=== PATIENT | male | born 1960 | race Caucasian/White ===

== ENCOUNTER 2018-06-02 07:10 | Observation (INO) | payer BC, OTHER ==
[2018-06-02 07:29] LABS: Absolute Lymphocytes (CBC) 1.7 K/uL (0.7-4.9); Absolute Monocytes 0.5 K/uL (0.1-1.3); Basophils % 0.8 % (0-1.3); Eosinophils % 3.2 % (0-4.4); Hematocrit 43.6 % (39.6-49.0); Lymphocytes % 31.6 % (15.3-44.8); MPV 7.5 fL (7.6-11.3); Monocytes % 9.6 % (3.3-12.3); RBC Red Blood Cell Count 4.79 M/uL (4.33-5.43)
[2018-06-02 08:00] LABS: ALT/SGPT 31 U/L (12-78); AST/SGOT 27 U/L (15-37); Albumin 3.8 g/dL (3.4-5.0); Alkaline Phosphatase 66 U/L (45-117); BUN Blood Urea Nitrogen 10 mg/dL (7-18); Bicarbonate 24 mmol/L (21-32); Bilirubin Direct 0.1 mg/dL (0-0.2); Bilirubin Total 0.5 mg/dL (0.2-1.0); Glucose Level 126 mg/dL (74-106); NT PRO-BNP 52 pg/mL (<125); Potassium 3.5 mmol/L (3.5-5.1); Protein, Total 8.2 g/dL (6.4-8.2); Sodium Level 139 mmol/L (136-145); Troponin (Emerg Dept Use Only) < 0.02 ng/mL (0.0-0.045)
--- NOTE | 2018-06-02 08:53 | RAD REPORT ---
EXAM DESCRIPTION: CT - Chest For Pe Angio - 06/02/2018 8:31 am CLINICAL HISTORY: Chest pain COMPARISON: None. TECHNIQUE: Dynamically enhanced axial 3 mm thick images of the chest were obtained during administra tion of <100> mL Isovue 370 IV contrast. Coronal and oblique reconstruction images were generated and reviewed. Exam utilizes a protocol for optimal evaluation of pulmonary arterial tree. Maximum intensity projections 3D imaging was utilized All CT scans are performed using dose optimization technique as appropriate and may include automated exposure control or mA/KV adjustment according to patient size. FINDINGS: Evaluation of the peripheral pulmonary arteries suboptimal secondary to respiratory motion artifact. No gross pulmonary embolus seen A thoracic aortic aneurysm is not noted. A pleural effusion is not seen. A pericardial effusion is not seen. A lung consolidation is not present. Fatty liver. Right renal cyst IMPRESSION: No gross pulmonary embolus seen
--- NOTE | 2018-06-02 09:30 | RAD REPORT ---
EXAM DESCRIPTION: Phong Single View06/02/2018 7:34 am CLINICAL HISTORY: Chest pain COMPARISON: 2012 FINDINGS: The lungs appear clear of acute infiltrate. The heart is normal size IMPRESSION: No acute abnormalities displayed
--- NOTE | 2018-06-02 09:30 | RAD REPORT ---
EXAM DESCRIPTION: USExtrem Venous W Compress Bil06/02/2018 8:11 am CLINICAL HISTORY: Bilateral leg swelling COMPARISON: none FINDINGS: The common femoral, superficial femoral, popliteal and posterior tibial veins bilaterally are compressible and demonstrate augmentation. Doppler demonstrates good flow. IMPRESSION: No evidence of deep venous thrombosis involving either lower extremity.
--- NOTE | 2018-06-02 10:11 | EDPHYS ---
Physician Documentation [facility] Name: Randy Worrell Age: 57 yrs Sex: Male : 1960 Arrival Date: 06/02/2018 Time: 07:12 Bed 3 Private MD: ED Physician Richy Mcqueen HPI: 06/02 07:15 This 57 yrs old Male presents to ER via Unassigned with complaints of Chest rn Pain > 30 y/o. 07:15 The patient or guardian reports chest pain that is located primarily in the substernal rn area. Onset: just prior to arrival. The pain does not radiate. Associated signs and symptoms: Pertinent positives: headache, lightheadedness, palpitations, shortness of breath, Pertinent negatives: abdominal pain, cough, syncope, vomiting. The chest pain is described as crushing. Duration: The patient or guardian reports a single episode, that is now resolved. Modifying factors: The symptoms are alleviated by ASA, NTG, the symptoms are aggravated by nothing. Severity of pain: At its worst the pain was moderate in the emergency department the pain has resolved. The patient has experienced similar episodes in the past. The patient has not recently seen a physician. Reports chest pain, intermittent episodes for "some time", was going to make appt soon for eval with PCP, but at work began with chest crushing pain, non-radiating, assoc with palpitations and sob, + lightheaded, no nausea/vomiting/diaphoresis. No abd pain. Pain resolved after nitro and aspirin.. Historical: - Allergies: 07:17 No Known Allergies; ss - PMHx: 07:17 Hypertension; "prediabetic"; ss - Immunization history:: Adult Immunizations up to date. - Social history:: Smoking status: Patient uses tobacco products, Cigars on occasion. - Ebola Screening: : Patient denies exposure to infectious person Patient denies travel to an Ebola-affected area in the 21 days before illness onset. - Family history:: not pertinent. - Hospitalizations: : No recent hospitalization is reported. ROS: 07:15 Constitutional: Negative for fever, chills, and weight loss, Eyes: Negative for injury, rn pain, redness, and discharge, Cardiovascular: + chest pain/palpitations/edema Respiratory: Negative for cough, wheezing, and pleuritic chest pain, Abdomen/GI: Negative for abdominal pain, nausea, vomiting, diarrhea, and constipation, MS/Extremity: Negative for injury and deformity, Skin: Negative for injury, rash, and discoloration, Neuro: Negative for weakness, numbness, tingling, and seizure. Exam: 07:20 Constitutional: This is a well developed, well nourished patient who is awake, alert, rn appears anxious Head/Face: Normocephalic, atraumatic. Eyes: Pupils equal round and reactive to light, extra-ocular motions intact. Lids and lashes normal. Conjunctiva and sclera are non-icteric and not injected. Cornea within normal limits. Periorbital areas with no swelling, redness, or edema. Cardiovascular: Regular rhythm, no murmur Respiratory: + mild tachypnea, no retractions, speaking full sentences Abdomen/GI: soft, non-tender MS/ Extremity: Pulses equal, no cyanosis. Neurovascular intact. Full, normal range of motion. + edema bilateral lower ext Neuro: Awake and alert, GCS 15, oriented to person, place, time, and situation. Cranial nerves II-XII grossly intact. Motor strength 5/5 in all extremities. Sensory grossly intact. Vital Signs: 07:17 BP 157 / 112; Pulse 96; Resp 24; Pulse Ox 100% on R/A; Height 5 ft. 9 in. (175.26 cm); ss Pain 0/10; 07:36 BP 149 / 106; Pulse 87; Resp 18 S; Pulse Ox 100% on R/A; iw 07:45 Temp 97.6; sg 09:06 BP 163 / 96; Pulse 85; Resp 16; Pulse Ox 98% on R/A; iw 09:54 BP 179 / 93; Pulse 86 MON; Resp 17; Pulse Ox 100% on R/A; sg 11:21 BP 154 / 93; Pulse 73; Resp 18; Pulse Ox 100% on R/A; ag MDM: 07:12 Patient medically screened. rn 10:07 Differential diagnosis: acute myocardial infarction, acute pericarditis, anxiety, rn coronary artery disease chest wall pain, esophagitis, gastritis, gastroesophageal reflux disease (GERD), pneumonia, pneumothorax, pulmonary embolus. Data reviewed: vital signs, nurses notes, lab test result(s), EKG, radiologic studies, and as a result, I will admit patient. Counseling: I had a detailed discussion with the patient and/or guardian regarding: the historical points, exam findings, and any diagnostic results supporting the discharge/admit diagnosis, the presence of at least one elevated blood pressure reading (>120/80) during this emergency department visit, the need for further work-up and treatment in the hospital. Response to treatment: the patient's symptoms have resolved after treatment, the patient's condition has returned to base line, the patient is now symptom free, and as a result, I will admit patient. Admission orders: after a detailed discussion of the patient's condition and case, the admit orders are written by me. ED course: Given episodes of chest pain without clear etiology, poorly controlled BP, will admit for further evaluation, admitted to Dr. Walker. . 06/02 07:13 Order name: Basic Metabolic Panel; Complete Time: 08:08 rn 06/02 07:13 Order name: CBC with Diff; Complete Time: 07:46 rn 06/02 07:13 Order name: LFT's; Complete Time: 08:08 rn 06/02 07:13 Order name: NT PRO-BNP; Complete Time: 08:08 rn 06/02 07:13 Order name: Troponin (emerg Dept Use Only); Complete Time: 08:08 rn 06/02 13:31 Order name: Troponin I EDWI 06/02 07:13 Order name: XRAY Chest (1 view); Complete Time: 09:32 rn 06/02 07:13 Order name: EKG; Complete Time: 07:15 rn 06/02 07:13 Order name: Cardiac monitoring; Complete Time: 07:49 rn 06/02 07:13 Order name: EKG - Nurse/Tech; Complete Time: 07:49 rn 06/02 07:20 Order name: Extrem Venous W Compression Tarik US; Complete Time: 09:32 rn 06/02 08:09 Order name: CT Chest For PE Angio; Complete Time: 09:32 rn 06/02 10:11 Order name: CONS Physician Consult EDWI 06/02 10:14 Order name: Echo with Doppler EDMS 06/02 07:13 Order name: IV Saline Lock; Complete Time: 07:50 rn 06/02 07:13 Order name: Labs collected and sent; Complete Time: 07:50 rn 06/02 07:13 Order name: O2 Per Protocol; Complete Time: 07:50 rn 06/02 07:13 Order name: O2 Sat Monitoring; Complete Time: 07:50 rn Administered Medications: No medications were administered Disposition: 06/02/18 10:10 Hospitalization ordered by Niya Walker for Inpatient Admission. Preliminary diagnosis is Chest pain, unspecified. - Bed requested for [facility] ER HOLD. - Status is Inpatient Admission. sg - Condition is Stable. - Problem is new. - Symptoms have improved. UTI on Admission? No Signatures: Dispatcher [employer] EDMS Carlos Griffin RN RN sg Nieto, Roman, MD MD rn Smirch, Shelby, RN RN ss Botello, Elizabeth eb Corrections: (The following items were deleted from the chart) 10:16 10:10 Hospitalization Ordered by Niya Walker MD for Inpatient Admission. Preliminary eb diagnosis is Chest pain, unspecified. Bed requested for Telemetry/MedSurg (observation). Status is Inpatient Admission. Condition is Stable. Problem is new. Symptoms have improved. UTI on Admission? No. rn 14:45 10:16 06/02/2018 10:10 Hospitalization Ordered by Niya Walker MD for Inpatient sg Admission. Preliminary diagnosis is Chest pain, unspecified. Bed requested for [facility] ER HOLD. Status is Inpatient Admission. Condition is Stable. Problem is new. Symptoms have improved. UTI on Admission? No. eb
--- NOTE | 2018-06-02 10:11 | ER ---
Nurse's Notes [facility] Name: Randy Worrell Age: 57 yrs Sex: Male : 1960 Arrival Date: 06/02/2018 Time: 07:12 Bed 3 Private MD: Diagnosis: Chest pain, unspecified Presentation: 06/02 07:13 Presenting complaint: EMS states: Sudden onset CP that began while at work this ss morning. EMS reports on arrival, patient was hyperventilating and tachycardic. Transition of care: patient was not received from another setting of care. Onset of symptoms was June 02, 2018. Risk Assessment: Do you want to hurt yourself or someone else? Patient reports no desire to harm self or others. Initial Sepsis Screen: Does the patient meet any 2 criteria? RR > 20 per min. HR > 90 bpm. Does the patient have a suspected source of infection? No. Patient's initial sepsis screen is negative. Care prior to arrival: Medication(s) given: ASA, 81 mg, x 4, Normal saline infusion, 250 mL Nitroglycerin, 0.4 mg SL x 2, Glucose check: 148. 07:13 Method Of Arrival: EMS: [facility] 07:13 Acuity: HALIMA 3 ss Historical: - Allergies: 07:17 No Known Allergies; ss - PMHx: 07:17 Hypertension; "prediabetic"; ss - Immunization history:: Adult Immunizations up to date. - Social history:: Smoking status: Patient uses tobacco products, Cigars on occasion. - Ebola Screening: : Patient denies exposure to infectious person Patient denies travel to an Ebola-affected area in the 21 days before illness onset. - Family history:: not pertinent. - Hospitalizations: : No recent hospitalization is reported. Screenin:18 Abuse screen: Denies threats or abuse. Denies injuries from another. Nutritional ss screening: No deficits noted. Tuberculosis screening: No symptoms or risk factors identified. Never had TB. Fall Risk None identified. Assessment: 07:18 Reassessment: PREHOSPITAL EKG strips placed on paper chart. Pt reports feeling much ss better after medication administration by [facility]. 07:25 General: Appears in no apparent distress. uncomfortable, well groomed, well developed, sg well nourished, Behavior is cooperative, appropriate for age. Pain: Complains of pain in chest Pain does not radiate. Quality of pain is described as aching, sharp. Neuro: Level of Consciousness is awake, alert, obeys commands, Oriented to person, place, time, situation, Log Buncher are equal bilaterally Moves all extremities. Full function Speech is normal, Facial symmetry appears normal. Cardiovascular: Patient's skin is warm and dry. Chest pain quality is squeezing, aching. Respiratory: Airway is patent Respiratory effort is even, unlabored, Respiratory pattern is symmetrical, tachypnea Breath sounds are clear. GI: Abdomen is round non-distended, Bowel sounds present X 4 quads. : No signs and/or symptoms were reported regarding the genitourinary system. EENT: No deficits noted. Derm: Skin is pink, warm \\T\\ dry. Musculoskeletal: No signs and/or symptoms reported regarding the musculoskeletal system. 07:30 Pain: Pain began gradually. iw 09:30 Reassessment: Patient appears in no apparent distress at this time. Patient and/or iw family updated on plan of care and expected duration. Pain level reassessed. Patient is alert, oriented x 3, equal unlabored respirations, skin warm/dry/pink. Patient states feeling better. Patient states symptoms have improved. Vital Signs: 07:17 BP 157 / 112; Pulse 96; Resp 24; Pulse Ox 100% on R/A; Height 5 ft. 9 in. (175.26 cm); ss Pain 0/10; 07:36 BP 149 / 106; Pulse 87; Resp 18 S; Pulse Ox 100% on R/A; iw 07:45 Temp 97.6; sg 09:06 BP 163 / 96; Pulse 85; Resp 16; Pulse Ox 98% on R/A; iw 09:54 BP 179 / 93; Pulse 86 MON; Resp 17; Pulse Ox 100% on R/A; sg 11:21 BP 154 / 93; Pulse 73; Resp 18; Pulse Ox 100% on R/A; ag ED Course: 07:12 Patient arrived in ED. rn 07:12 Richy Mcqueen MD is Attending Physician. rn 07:16 Triage completed. ss 07:17 Arm band placed on right wrist. ss 07:18 Patient has correct armband on for positive identification. Placed in gown. Bed in low ss position. Call light in reach. Side rails up X2. nuclear monitoring technician on. Pulse ox on. NIBP on. 07:18 Maintain EMS IV. Dressing intact. Good blood return noted. Site clean \\T\\ dry. Gauge \\T\\ ss site: 18 gauge in L AC. Patient maintains SpO2 saturation greater than 95% on room air. 07:20 EKG done, by pest control chemical technician. reviewed by Richy Mcqueen MD. at1 07:29 Carlos Griffin, RN is Primary Nurse. sg 07:31 X-ray completed. Portable x-ray completed in exam room. Patient tolerated procedure jb2 well. 07:32 XRAY Chest (1 view) In Process Unspecified. EDMS 08:09 Extrem Venous W Compression Tarik US In Process Unspecified. EDMS 08:32 CT Chest For PE Angio In Process Unspecified. EDMS 09:15 No provider procedures requiring assistance completed. IV discontinued, intact, iw bleeding controlled, No redness/swelling at site. Pressure dressing applied. 10:10 Niya Walker MD is Hospitalizing Provider. rn Administered Medications: No medications were administered Outcome: 09:14 Discharged to home ambulatory. iw 09:14 Condition: good 09:14 Discharge instructions given to patient, Instructed on discharge instructions, follow up and referral plans. medication usage, Demonstrated understanding of instructions, follow-up care, medications, Prescriptions given X 2. 10:10 Decision to Hospitalize by Provider. rn 14:45 Patient left the ED. sg Signatures: Dispatcher [employer] EDMS Carlos Griffin, RN RN Jose Roberts jb2 Cookie Dawkins, Richy Edwards RN, MD MD rn Smirch, Shelby, RN RN ss Gonzales, Amanda, instrument specialist EKG Tat1 Savana Rahman ag
--- NOTE | 2018-06-02 13:18 | EKG ---
Test Date: 2018-06-02 Test Time: 13:11:18 [employer]ad[employer] Plans Staff Officer: SWG MEASUREMENT RESULTS: Intervals: Rate: 89 [place]: 154 QRSD: 82 QT: 348 QTc: 423 [place]: P: 47 [place]: 154 QRS: 4 T: 43 INTERPRETIVE STATEMENTS: Normal sinus rhythm Normal ECG Compared to ECG 09/29/2012 15:18:08 no significant change from previous ECG Electronically Signed On 06-02-18 13:17:59 PROPERTY DISPOSAL MANAGER by Brandon Norman
[2018-06-02] MEDS ORDERED: METOPROLOL TAR 25 MG TAB ONE (13:30)
[2018-06-02] MEDS ORDERED: METOPROLOL XL 25 MG TAB PO ONE (13:30)
--- NOTE | 2018-06-02 13:58 | ECHO ---
HEIGHT: 5 ft 9 in WEIGHT: 245 lb 0 oz DATE OF STUDY: 06/02/[address]: Niya Walker MD 2-DIMENSIONAL: YES M.MODE: YES DOPPLER: YES COLOR FLOW: YES TDS: NO PORTABLE: YES DEFINITY: NO BUBBLE STUDY: NO DIAGNOSIS: CHEST PAIN, HYPERTENSION CARDIAC HISTORY: CATHERIZATION: NO SURGERY: NO PROSTHETIC VALVE: NO PACEMAKER: NO MEASUREMENTS (cm) DIASTOLIC (NORMALS) SYSTOLIC (NORMALS) IVSd 1.2 (0.6-1.2) LA Diam 3.6 (1.9-4.0) LVEF 76% LVIDd 4.3 (3.5-5.7) LVIDs 2.4 (2.0-3.5) %FS 44% LVPWd 1.2 (0.6-1.2) Ao Diam 3.3 (2.0-3.7) 2 DIMENSIONAL ASSESSMENT: RIGHT ATRIUM: NORMAL LEFT ATRIUM: NORMAL RIGHT VENTRICLE: NORMAL LEFT VENTRICLE: NORMAL TRICUSPID VALVE: NORMAL MITRAL VALVE: NORMAL PULMONIC VALVE: NORMAL AORTIC VALVE: NORMAL PERICARDIAL EFFUSION: NONE AORTIC ROOT: NORMAL LEFT VENTRICULAR WALL MOTION: NORMAL DOPPLER/COLOR FLOW: NORMAL COMMENTS: NORMAL 2D ECHOCARDIOGRAM WITH DOPPLER. TECHNOLOGIST: Monica MIDDLETON
--- NOTE | 2018-06-02 15:19 | P.SSS ---
Patient History Date of Service: 06/02/18 Primary Care Provider: Dr. Oquendo [facility] Reason for admission: Chest pain History of Present Illness: This is a 49-year-old male with history of hypertension, long flight admitted for chest pain. Per patient, he had an episode of chest pain this morning, checked his blood pressure it was above 200 to a called the EMS. The. Prior to coming to the ER, patient did take his losartan medication at home. He states that he is compliant with his medication, does not miss any doses and normally his blood pressure at home runs 150s to 160 systolic. In the ER, CT for PE was negative, Blood pressure was 172 over 90s, troponin was negative x1, EKG without any specific changes, lab work unremarkable, and his symptoms had already resolved. At the time of my exam, patient's blood pressure was 160/80s , he was asymptomatic, blood work was unremarkable, he was hemodynamically stable and alert oriented x3. He was in no acute distress, his chest pain and all his symptoms had resolved. Patient denied any headache, vision changes, dizziness, syncopal/presyncopal episode, abdominal pain, diarrhea, constipation or any symptoms. Allergies No Known Allergies Allergy (Unverified 10/01/12 14:53) Home Medications: Naproxen Sodium [Aleve] 220 mg PO QIDP PRN 10/01/12 Aspirin [Aspirin EC 81 MG] 81 mg PO DAILY #30 tablet. 06/02/18 Losartan Potassium 50 mg PO 06/02/18 Metoprolol Tartrate 25 mg PO DAILY #30 tablet 06/02/18 - Past Medical/Surgical History -: Hypertension Review of Systems 10-point ROS is otherwise unremarkable Physical Examination - Vital Signs Temperature: 97.7 F Blood Pressure: 151/97 Pulse: 87 Respirations: 14 Pulse Ox (%): 100 - Physical Exam General: Alert, In no apparent distress, Oriented x3 HEENT: Atraumatic, PERRLA, Mucous membr. moist/pink, EOMI, Sclerae nonicteric Neck: Supple, 2+ carotid pulse no bruit, No LAD, Without JVD or thyroid abnormality Respiratory: Clear to auscultation bilaterally, Normal air movement Cardiovascular: Regular rate/rhythm, Normal S1 S2 Gastrointestinal: Normal bowel sounds, No tenderness Musculoskeletal: No tenderness Integumentary: No rashes Neurological: Normal gait, Normal speech, Normal strength at 5/5 x4 extr, Normal tone, Normal affect Lymphatics: No axilla or inguinal lymphadenopathy - Studies Laboratory Data (last 24 hrs) 06/02/18 07:10: WBC 5.4, Hgb 14.9, Hct 43.6, Plt Count 267 06/02/18 07:10: Sodium 139, Potassium 3.5, BUN 10, Creatinine 1.33 H, Glucose 126 H, Total Bilirubin 0.5, AST 27, ALT 31, Alkaline Phosphatase 66 Treatment Summary: And echocardiogram was done, which was normal. Troponins were negative x2, EKG normal x2. Patient completely asymptomatic, normal physical exam, lab work unremarkable. Patient provided information for cardiology for outpatient follow up. He was discharged home on the new medications of metoprolol and aspirin. He was instructed to follow up with his primary care physician in 1-2 weeks for further followup. - Disposition Disposition: ROUTINE DISCHARGE Condition: GOOD Patient Discharge Instructions: Please follow up with your primary care physician in 1 week. ECHO cardiogram was done, which was normal. Hypertension : Please conitnue monitoring your blood pressures at home, recording on a log sheet and please take it to your next primary care doctor appointment. New medications: Metoprolol (for your blood presssure and heart), Aspirin 81 mg daily. Diet: AHA Activity: Ad maggie Physician Review: Patient Assessed, Agree with Above Assessment and Plan Time Spent Managing Pts Care (In Minutes): 55
--- NOTE | 2018-06-02 16:03 | EKG ---
Test Date: 2018-06-02 Test Time: 07:20:30 Engine Pilot: GHANSHYAM MEASUREMENT RESULTS: Intervals: Rate: 88 [place]: 154 QRSD: 72 QT: 354 QTc: 428 [place]: P: 44 [place]: 154 QRS: 12 T: 34 INTERPRETIVE STATEMENTS: Normal sinus rhythm Normal ECG Compared to ECG 09/29/2012 15:18:08 No significant changes Electronically Signed On 06-02-18 16:02:57 LOCAL OPERATOR by Brandon Norman
[2018-06-03] MEDS ORDERED: METOPROLOL XL 25 MG TAB PO SCH (06:00)
== END 2018-06-02 14:38 | disposition home or self-care (01) ==
LOC: ER 07:10 → ERHOLD 10:10
PROVIDERS: ADMIT Family Medicine; ATTEND Family Medicine
DX: R07.9 Chest pain, unspecified (principal); I10 Essential (primary) hypertension; Z79.82 Long term (current) use of aspirin
CPT/HCPCS: 36415; 71045; 71275; 80048; 80076; 83880; 84484; 85025; 93005; 93306; 93970; 99285; G0378; Q9967

== ENCOUNTER 2021-04-04 13:31 | Inpatient (IN) | payer BC, OTHER ==
[2021-04-04] MEDS ORDERED: ACETAMINOPHEN 500 MG TAB ONE (14:32)
[2021-04-04] MEDS ORDERED: ONDANSETRON 4 MG/2 ML VIAL ONE (14:33)
[2021-04-04] MEDS ORDERED: MORPHINE 4 MG/ML SYR ONE ×2 (14:33→17:33)
[2021-04-04] MEDS ORDERED: NA CHLORIDE 0.9% 4,000 ML ONE (14:33)
[2021-04-04 14:38] LABS: Absolute Lymphocytes (CBC) 1.3 K/uL (0.7-4.9); Basophils % 0.8 % (0-1.3); Hematocrit 43.3 % (39.6-49.0); Lymphocytes % 17.1 % (15.3-44.8); MPV 6.9 fL (7.6-11.3)
[2021-04-04 14:42] LABS: Protime INR 1.03
[2021-04-04] MEDS ORDERED: CEFEPIME 2 GM in NA CHLORIDE 0.9% 100 ML IV ONE (15:00)
[2021-04-04] MEDS ORDERED: VANCOMYCIN 1.5 GM in NA CHLORIDE 0.9% 500 ML IVPB ONE (15:00)
[2021-04-04 15:01] LABS: ALT/SGPT 28 U/L (12-78); AST/SGOT 20 U/L (15-37); Albumin 3.6 g/dL (3.4-5.0); Alkaline Phosphatase 61 U/L (45-117); BUN Blood Urea Nitrogen 15 mg/dL (7-18); Bicarbonate 27 mmol/L (21-32); Bilirubin Direct 0.2 mg/dL (0-0.2); Bilirubin Total 0.8 mg/dL (0.2-1.0); Glucose Level 108 mg/dL (74-106); NT PRO-BNP 118 pg/mL (<125); Potassium 3.5 mmol/L (3.5-5.1); Protein, Total 8.7 g/dL (6.4-8.2); Sodium Level 136 mmol/L (136-145); Troponin (Emerg Dept Use Only) < 0.02 ng/mL (0.0-0.045)
--- NOTE | 2021-04-04 15:07 | RAD REPORT ---
EXAM DESCRIPTION: US - Extremity Venous Uni Ltd - 04/04/2021 2:46 pm CLINICAL HISTORY: Pain;Swelling COMPARISON: None. TECHNIQUE: Real-time sonographic evaluation of the right lower extremity deep venous systems was per formed. FINDINGS: Normal compressibility, flow augmentation, phasic flow and spontaneous flow are identified in the right lower extremity common femoral, superficial femoral, popliteal and posterior tibial vei ns. No intraluminal filling defects seen. IMPRESSION: No DVT in the right lower extremity.
--- NOTE | 2021-04-04 15:07 | RAD REPORT ---
EXAM DESCRIPTION: RAD - Chest Single View - 04/04/2021 2:42 pm CLINICAL HISTORY: right leg swelling COMPARISON: Portable May 2018 TECHNIQUE: AP portable chest image was obtained 04/04/2021 2:42 pm . FINDINGS: Lungs are clear. Interstitial pattern matches comparison. Heart and vasculature are normal . No measurable pleural effusion and no pneumothorax. No acute bony abnormality seen. No acute aortic findings suspected. IMPRESSION: No acute cardiopulmonary process. No significant change from comparison study.
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
--- NOTE | 2021-04-04 15:52 | ER ---
Nurse's Notes [facility] Name: Randy Worrell Age: 60 yrs Sex: Male : 1960 Arrival Date: 04/04/2021 Time: 13:36 Bed 13 Private MD: Ivan Oquendo Diagnosis: Cellulitis of right lower limb Presentation: 04/04 13:51 Chief complaint: Patient states: right lower leg pain that began yesterday. Pt denies aa5 known injury, reports right lower leg is hot to the touch and baseline swelling to site. Coronavirus screen: fever. Ebola Screen: No symptoms or risks identified at this time. Initial Sepsis Screen: Does the patient meet any 2 criteria? Temp <36.0*C (96.8*F)) or > 38.3*C (100.9*F). HR > 90 bpm. Yes Does the patient have a suspected source of infection? Yes:. Risk Assessment: Do you want to hurt yourself or someone else? Patient reports no desire to harm self or others. Onset of symptoms was March 2021. 13:51 Method Of Arrival: Ambulatory aa5 13:51 Acuity: HALIMA 2 aa5 Triage Assessment: 13:51 General: Appears distressed, uncomfortable, Behavior is cooperative, appropriate for bp age, anxious. Pain: Complains of pain in right leg. EENT: No deficits noted. Neuro: Level of Consciousness is awake, alert, obeys commands, Oriented to Appropriate for age. Cardiovascular: No deficits noted. Respiratory: No deficits noted. GI: No signs and/or symptoms were reported involving the gastrointestinal system. : No signs and/or symptoms were reported regarding the genitourinary system. Derm: Skin is pink, red, Skin temperature is hot. Musculoskeletal: No signs and/or symptoms reported regarding the musculoskeletal system. Historical: - Allergies: 13:51 No Known Allergies; aa5 - PMHx: 13:51 "prediabetic"; Hypertension; aa5 - Immunization history:: Adult Immunizations unknown. - Social history:: Smoking status: Patient denies any tobacco usage or history of. Screenin:18 Abuse screen: Denies threats or abuse. Denies injuries from another. Nutritional bp screening: No deficits noted. Tuberculosis screening: No symptoms or risk factors identified. Fall Risk None identified. Assessment: 14:00 General: SEE TRIAGE NOTE. bp 15:00 Reassessment: No changes from previously documented assessment. Patient and/or family bp updated on plan of care and expected duration. Pain level reassessed. PT RETURNED FROM RAD. 17:17 Reassessment: Patient appears in no apparent distress at this time. Patient and/or iw family updated on plan of care and expected duration. Pain level reassessed. Patient is alert, oriented x 3, equal unlabored respirations, skin warm/dry/pink. 17:19 Reassessment: attempt to call report, Candice will call back. iw Vital Signs: 13:51 BP 147 / 118; Pulse 102; Resp 20 S; Temp 102.0(O); Pulse Ox 99% on R/A; Weight 111.13 aa5 kg (R); Height 5 ft. 10 in. (177.80 cm) (R); 15:00 BP 117 / 82; Pulse 94; Resp 16; Pulse Ox 97% ; bp 16:00 BP 144 / 86; Pulse 77; Resp 16; Pulse Ox 97% ; bp 17:16 BP 164 / 88; Pulse 86; Resp 16 S; Temp 99.0; Pulse Ox 99% on R/A; iw 13:51 Body Mass Index 35.15 (111.13 kg, 177.80 cm) aa5 ED Course: 13:36 Patient arrived in ED. mr 13:36 Ivan Oquendo DO is Private Physician. mr 13:51 Arm band placed on. aa5 13:56 Triage completed. aa5 13:57 Jose Diaz, RN is Primary Nurse. bp 14:00 Eduardo Santana PA is PHCP. cp 14:00 Jayden Andre MD is Attending Physician. cp 14:00 Inserted saline lock: 22 gauge in right antecubital area, using aseptic technique. bp Blood collected. 14:40 US Extremity Venous Unilateral Ltd In Process Unspecified. EDMS 14:43 XRAY Chest (1 view) In Process Unspecified. EDMS 15:50 Zeus Chavez DO is Hospitalizing Provider. cp 15:56 XRAY Tib Fib RIGHT In Process Unspecified. EDMS 17:18 Patient has correct armband on for positive identification. Bed in low position. Call bp light in reach. Side rails up X2. 17:19 No provider procedures requiring assistance completed. Patient admitted, IV remains in bp place. Administered Medications: 15:00 Drug: Tylenol 1000 mg Route: PO; bp 15:22 Follow up: Response: No adverse reaction bp 15:00 Drug: NS 0.9% 1000 ml Route: IV; Rate: 1 bolus; Site: right antecubital; bp 15:00 Drug: NS 0.9% 1000 ml Route: IV; Rate: 1 bolus; Site: right antecubital; bp 15:00 Drug: NS 0.9% 1000 ml Route: IV; Rate: 1 bolus; Site: right antecubital; bp 15:00 Drug: morphine 4 mg Route: IVP; Site: right antecubital; bp 15:21 Follow up: Response: Pain is decreased bp 15:00 Drug: Zofran (Ondansetron) 4 mg Route: IVP; Site: right antecubital; bp 15:21 Follow up: Response: No adverse reaction bp 15:45 Drug: Cefepime 2 grams Route: IVPB; Rate: 200 ml/hr; Infused Over: 30 mins; Site: right bp antecubital; 16:21 Drug: vancoMYCIN 1.5 grams Route: IVPB; Rate: calculated rate; Site: right antecubital; kd3 17:37 Drug: morphine 4 mg Route: IVP; Site: right antecubital; Outcome: 15:51 Decision to Hospitalize by Provider. cp 17:53 Admitted to Med/surg accompanied by tech, via wheelchair, room 228, Report called to Magallanes RN 17:53 Condition: good 17:53 Discharge instructions given to patient, Instructed on the need for admit, Demonstrated understanding of instructions. 17:54 Patient left the ED. iw Signatures: Dispatcher [employer] EDND Joe Ingris Cookie José RN Karol Quintero RN RN aa5 Eduardo Santana PA PA Jose Harrington RN RN bp Doucette, Kyli kd3 Corrections: (The following items were deleted from the chart) 13:57 13:51 Acuity: HALIMA 3 aa5 aa5
--- NOTE | 2021-04-04 16:21 | RAD REPORT ---
EXAM DESCRIPTION: RAD - Tib Fib Right - 04/04/2021 3:55 pm CLINICAL HISTORY: Pain;Swelling COMPARISON: No comparisons FINDINGS: No fracture is identified. There is no dislocation or periosteal reaction noted. No acute or suspicious bony finding. Achilles and plantar tendons artery are present calcaneus. No foreign body or other soft tissue abnormality. IMPRESSION: Negative right tibia & fibula examination significant finding.
--- NOTE | 2021-04-04 17:09 | P.HP ---
Certification for Inpatient Patient admitted to: Observation With expected LOS: <2 Midnights Patient will require the following post-hospital care: None Practitioner: I am a practitioner with admitting privileges, knowledge of patient current condition, hospital course, and medical plan of care. Services: Services provided to patient in accordance with Admission requirements found in Title 42 Section 412.3 of the Code of Federal Regulations Patient History Date of Service: 04/04/21 Primary Care Provider: Dr. Oquendo Reason for admission: Right lower extremity pain History of Present Illness: 60-year-old male presented to emergency room with right lower extremity pain. [place]. He had some areas of excoriation to the right lower extremity. Patient reports a history of varicose veins. Then today he started to notice fever, warmth to the right lower extremity. He is very weak. He came to the ER for further evaluation. In the ER patient was evaluated. Venous Doppler showed no DVT. Chest x-ray unremarkable. White count 7.6, hemoglobin 15. Lactic acid normal. Procalcitonin negative. Troponin negative. Sodium 136, potassium 3.5. BUN of 15, creatinine 1.14 with a GFR 65. Glucose 108. Patient given IV antibiotic therapy in the ER. Patient admitted for further evaluation Allergies No Known Allergies Allergy (Unverified 10/01/12 14:53) Home Medications: Naproxen Sodium [Aleve] 220 mg PO QIDP PRN 10/01/12 Aspirin [Aspirin EC 81 MG] 81 mg PO DAILY #30 tablet. 06/02/18 Losartan Potassium 50 mg PO 06/02/18 Metoprolol Tartrate 25 mg PO DAILY #30 tablet 06/02/18 - Past Medical/Surgical History Has patient received pneumonia vaccine in the past: Yes -: Varicose veins with venous insufficiency -: Prediabetes -: Knee surgery Psychosocial/ Personal History: Patient lives at home - Family History Family History: Reviewed- Non-Contributory - Social History Smoking Status: Never smoker Alcohol use: Yes CD- Drugs: No Caffeine use: Yes Place of Residence: Home Review of Systems General: Fever, As per HPI Eyes: Unremarkable ENT: Unremarkable Respiratory: Unremarkable Cardiovascular: Unremarkable Gastrointestinal: Unremarkable Genitourinary: Unremarkable Musculoskeletal: Leg Pain, Pedal edema, As per HPI Integumentary: As per HPI Neurological: Unremarkable Lymphatics: Unremarkable Physical Examination - Studies Laboratory Data (last 24 hrs) 04/04/21 14:20: PT 11.9, INR 1.03 04/04/21 14:20: WBC 7.60, Hgb 15.1, Hct 43.3, Plt Count 268 04/04/21 14:20: Sodium 136, Potassium 3.5, BUN 15, Creatinine 1.14, Glucose 108 H, Magnesium 2.0, Total Bilirubin 0.8, AST 20, ALT 28, Alkaline Phosphatase 61 Assessment and Plan - Plan COVID: Pending Venous Doppler: No DVT noted Chest x-ray: Unremarkable Physical Exam: GENERAL: The patient is a well-developed, well-nourished, in no apparent distress. Alert and oriented x3. VITAL SIGNS: Reviewed HEENT: Head is normocephalic and atraumatic. Extraocular muscles are intact. Pupils are equal, round, and reactive to light and accommodation. Nares appeared normal. Mouth is well hydrated and without lesions. Mucous membranes are moist. NECK: Supple. No carotid bruits. No lymphadenopathy or thyromegaly. LUNGS: Clear to auscultation. No crackles or wheezes are heard. HEART: Regular rate and rhythm, no appreciable gallops, rubs, murmurs or extra heart sounds ABDOMEN: Soft, nontender, and nondistended. Positive bowel sounds. No hepatosplenomegaly was noted. EXTREMITIES: Patient with varicose veins bilateral. Increased swelling, warmth to the right lower extremity. Some areas of excoriation noted. No significant abscess noted. Mild erythema noted to the right side.. NEUROLOGIC: The patient is oriented to person, place and time. Strength and sensation are grossly intact. Face is symmetric. SKIN: As above Impression: Right lower extremity cellulitis complicated with varicose veins and venous insufficiency Hyperglycemia suspect prediabetes Plan: Right lower extremity cellulitis complicated with varicose veins and venous insufficiency: Patient will be admitted with further evaluation and treatment. We will continue with vancomycin. We will also start Levaquin IV. Will elevate leg when sitting or lying. Will clean with antibacterial soap and water and apply Bactroban daily. Will monitor closely. Will reassess daily. Provide medication for pain. Anticipate improvement over the next 48 hours. Hyperglycemia suspect prediabetes: We will check A1c. Code Status: Full Code DVT prophylaxis: Lovenox Advanced Care Planning-30 minutes: Home at discharge Discharge Plan: Home Plan to discharge in: 48 Hours - Advance Directives Does patient have a Living Will: No Does patient have a Durable POA for Healthcare: No - Code Status/Comfort Care Code Status Assessed: Yes (Full code) Time Spent Managing Pts Care (In Minutes): 55
[2021-04-04] MEDS ORDERED: ACETAMINOPHEN 500 MG TAB PO PRN (18:28)
[2021-04-04] MEDS ORDERED: HYDROCODONE/APAP 7.5/325 MG TAB PO PRN (18:28)
[2021-04-04] MEDS ORDERED: TRAMADOL HCL 50 MG TAB PO PRN (18:28)
[2021-04-04] MEDS ORDERED: ONDANSETRON 4 MG/2 ML VIAL IV PRN (18:28)
[2021-04-04] MEDS ORDERED: VANCOMYCIN/NS 1 gm 1 GM/250 ML BAG IVPB SCH (18:28)
[2021-04-04 18:42] VITALS: BMI 35.1
[2021-04-04] MEDS: ENOXAPARIN 40 MG/0.4 ML SQ SCH (20:43)
[2021-04-04] MEDS: NA CHLORIDE 0.9% 1,000 ML IV SCH (20:43)
[2021-04-04] MEDS: Levofloxacin500mg IV 500 MG/100 ML BAG IV SCH (20:43)
[2021-04-04] MEDS: FAMOTIDINE 20 MG TAB PO SCH (20:45)
[2021-04-04] MEDS: INSULIN -REGULAR HUMAN 50 UNIT/0.5 ML ML SQ SCH (20:52)
[2021-04-04] MEDS: MUPIROCIN 2% OINT 22GM TUBE TOP SCH (21:00)
[2021-04-05 00:39] LABS: Urine Appearance CLEAR (Clear); Urine Bilirubin NEGATIVE (Negative); Urine Blood NEGATIVE (Negative); Urine Color YELLOW (Yellow); Urine Glucose NEGATIVE (Negative); Urine Protein NEGATIVE (Negative); Urine Specific Gravity 1.015 (1.005-1.030); Urine Urobilinogen 0.2 mg/dL (0.2-1.0)
[2021-04-05 00:45] LABS: Urine Microscopic Reflex ORDER UMIC
[2021-04-05 01:03] LABS: Urine Bacteria <20 /HPF (NONE SEEN); Urine RBC NONE SEEN /HPF (NONE SEEN)
[2021-04-05] MEDS ORDERED: VANCOMYCIN 1 GM/VIAL ONE (02:37)
[2021-04-05] MEDS ORDERED: NA CHLORIDE 0.9% 500 ML ONE (02:38)
[2021-04-05] MEDS ORDERED: VANCOMYCIN/NS 1 gm 1 GM/250 ML BAG IVPB SCH ×2 (03:00→04:30)
[2021-04-05 03:55] LABS: Absolute Lymphocytes (CBC) 2.1 K/uL (0.7-4.9); Basophils % 0.4 % (0-1.3); Hematocrit 38.1 % (39.6-49.0); Lymphocytes % 19.4 % (15.3-44.8); MPV 7.3 fL (7.6-11.3); RBC Red Blood Cell Count 4.14 M/uL (4.33-5.43)
[2021-04-05 04:07] LABS: Magnesium 1.7 mg/dL (1.8-2.4); Potassium 3.6 mmol/L (3.5-5.1)
[2021-04-05] MEDS: NA CHLORIDE 0.9% 1,000 ML IV SCH ×2 (04:28→14:57)
--- NOTE | 2021-04-05 06:10 | P.PN ---
Subjective Date of Service: 04/05/21 Primary Care Provider: Dr. Oquendo Chief Complaint: Right lower extremity pain Subjective: Other (Patient reports improvement in pain to the right lower extremity. Swelling also improved. T-max 102.0) Physical Examination - Vital Signs Temperature: 99.0 F Blood Pressure: 109/49 Pulse: 75 Respirations: 16 Pulse Ox (%): 96 - Studies Laboratory Data (last 24 hrs) 04/04/21 14:20: PT 11.9, INR 1.03 04/04/21 14:20: WBC 7.60, Hgb 15.1, Hct 43.3, Plt Count 268 04/04/21 14:20: Sodium 136, Potassium 3.5, BUN 15, Creatinine 1.14, Glucose 108 H, Magnesium 2.0, Total Bilirubin 0.8, AST 20, ALT 28, Alkaline Phosphatase 61 Assessment & Plan Discharge Plan: Home Plan to discharge in: 24 Hours Physician Review Additional Text: COVID: negative Venous Doppler: COMPARISON: None. TECHNIQUE: Real-time sonographic evaluation of the right lower extremity deep venous systems was performed. FINDINGS: Normal compressibility, flow augmentation, phasic flow and spontaneous flow are identified in the right lower extremity common femoral, superficial femoral, popliteal and posterior tibial veins. No intraluminal filling defects seen. IMPRESSION: No DVT in the right lower extremity. Chest x-ray: COMPARISON: Portable May 2018 TECHNIQUE: AP portable chest image was obtained 04/04/2021 2:42 pm . FINDINGS: Lungs are clear. Interstitial pattern matches comparison. Heart and vasculature are normal. No measurable pleural effusion and no pneumothorax. No acute bony abnormality seen. No acute aortic findings suspected. IMPRESSION: No acute cardiopulmonary process. No significant change from comparison study. Right LE xray: COMPARISON: No comparisons FINDINGS: No fracture is identified. There is no dislocation or periosteal reaction noted. No acute or suspicious bony finding. Achilles and plantar tendons artery are present calcaneus. No foreign body or other soft tissue abnormality. IMPRESSION: Negative right tibia & fibula examination significant finding. Physical Exam: GENERAL: The patient is a well-developed, well-nourished, in no apparent distress. Alert and oriented x3. VITAL SIGNS: Reviewed HEENT: Neck supple LUNGS: Clear to auscultation. No crackles or wheezes are heard. HEART: Regular rate and rhythm, no appreciable gallops, rubs, murmurs or extra heart sounds ABDOMEN: Soft, nontender, and nondistended. Positive bowel sounds. No hepatosplenomegaly was noted. EXTREMITIES: Patient with varicose veins bilateral. Swelling to the right lower extremity improved. Warmth and erythema also improved to the right lower extremity. Primarily below the mid tibia/fibula region. Pain improved. NEUROLOGIC: The patient is oriented to person, place and time. Strength and sensation are grossly intact. Face is symmetric. SKIN: As above Impression: Right lower extremity cellulitis complicated with varicose veins and venous insufficiency Hyperglycemia suspect prediabetes Elevated blood pressure without hypertension Plan: Right lower extremity cellulitis complicated with varicose veins and venous insufficiency: Patient overall improved. Continue IV vancomycin and IV Levaquin. Recommend to continue to elevate leg when sitting or lying. Encourage ambulation. Continue antibacterial soap and water cleansing with application of Bactroban daily. Continue to provide medication for pain. X-ray shows no evidence of fracture. Venous Doppler negative. Await blood culture results. Anticipate continued improvement over the next 24 to 48 hours. Hyperglycemia without DM or Prediabetes: A1c 5.3. No diabetes or prediabetes. Elevated blood pressure without hypertension: Will monitor blood pressure closely. Consider adding medication if blood pressure remains elevated. Code Status: Full Code DVT prophylaxis: Lovenox Advanced Care Planning-30 minutes: Home at discharge Time Spent Managing Pts Care (In Minutes): 55
[2021-04-05] MEDS ORDERED: POTASSIUM CL SA 10 MEQ TAB PO ONE (06:30)
[2021-04-05] MEDS ORDERED: IBUPROFEN 400 MG TAB PO PRN (08:22)
[2021-04-05] MEDS: FAMOTIDINE 20 MG TAB PO SCH ×2 (09:01→20:58)
[2021-04-05] MEDS: THIAMINE HCL 100 MG TABLET PO SCH (09:01)
[2021-04-05] MEDS: INSULIN -REGULAR HUMAN 50 UNIT/0.5 ML ML SQ SCH ×2 (09:01→11:30)
[2021-04-05] MEDS: ENOXAPARIN 40 MG/0.4 ML SQ SCH (09:02)
[2021-04-05] MEDS: FOLIC ACID 1 MG TABLET PO SCH (09:02)
[2021-04-05] MEDS: MUPIROCIN 2% OINT 22GM TUBE TOP SCH ×2 (09:04→20:57)
[2021-04-05] MEDS ORDERED: MAGNESIUM SULFATE 1 gm IVPB 1 GM/100 ML BAG IV ONE (09:30)
[2021-04-05] MEDS: Levofloxacin500mg IV 500 MG/100 ML BAG IV SCH (19:50)
[2021-04-05] MEDS ORDERED: VANCOMYCIN 2 GM in NA CHLORIDE 0.9% 500 ML IVPB SCH (21:00)
[2021-04-05 22:16] VITALS: O2SAT 97
[2021-04-06] MEDS: NA CHLORIDE 0.9% 1,000 ML IV SCH (00:35)
[2021-04-06] MEDS ORDERED: VANCOMYCIN 2 GM in NA CHLORIDE 0.9% 500 ML IVPB SCH (03:00)
[2021-04-06 03:48] LABS: Absolute Lymphocytes (CBC) 1.3 K/uL (0.7-4.9); Basophils % 0.7 % (0-1.3); Hematocrit 35.4 % (39.6-49.0); Lymphocytes % 23.2 % (15.3-44.8); MPV 6.9 fL (7.6-11.3); RBC Red Blood Cell Count 3.84 M/uL (4.33-5.43)
[2021-04-06 04:19] LABS: Potassium 3.7 mmol/L (3.5-5.1)
[2021-04-06 04:20] LABS: Magnesium 2.2 mg/dL (1.8-2.4)
--- NOTE | 2021-04-06 06:00 | P.PN ---
Subjective Date of Service: 04/06/21 Primary Care Provider: Dr. Oquendo Chief Complaint: Right lower extremity pain Subjective: Improving, Doing well Physical Examination - Vital Signs Temperature: 97.3 F Blood Pressure: 136/65 Pulse: 70 Respirations: 19 Pulse Ox (%): 96 Assessment & Plan Discharge Plan: Home Plan to discharge in: 24 Hours Physician Review Additional Text: COVID: negative Venous Doppler: COMPARISON: None. TECHNIQUE: Real-time sonographic evaluation of the right lower extremity deep venous systems was performed. FINDINGS: Normal compressibility, flow augmentation, phasic flow and spontaneous flow are identified in the right lower extremity common femoral, superficial femoral, popliteal and posterior tibial veins. No intraluminal filling defects seen. IMPRESSION: No DVT in the right lower extremity. Chest x-ray: COMPARISON: Portable May 2018 TECHNIQUE: AP portable chest image was obtained 04/04/2021 2:42 pm . FINDINGS: Lungs are clear. Interstitial pattern matches comparison. Heart and vasculature are normal. No measurable pleural effusion and no pneumothorax. No acute bony abnormality seen. No acute aortic findings suspected. IMPRESSION: No acute cardiopulmonary process. No significant change from comparison study. Right LE xray: COMPARISON: No comparisons FINDINGS: No fracture is identified. There is no dislocation or periosteal reaction noted. No acute or suspicious bony finding. Achilles and plantar tendons artery are present calcaneus. No foreign body or other soft tissue abnormality. IMPRESSION: Negative right tibia & fibula examination significant finding. Physical Exam: GENERAL: The patient is a well-developed, well-nourished, in no apparent distress. Alert and oriented x3. VITAL SIGNS: Reviewed HEENT: Neck supple LUNGS: Clear to auscultation. No crackles or wheezes are heard. HEART: Regular rate and rhythm, no appreciable gallops, rubs, murmurs or extra heart sounds ABDOMEN: Soft, nontender, and nondistended. Positive bowel sounds. No hepatosplenomegaly was noted. EXTREMITIES: Patient with varicose veins bilateral. Swelling to the right lower extremity significant improved. No significant warmth. NEUROLOGIC: The patient is oriented to person, place and time. Strength and sensation are grossly intact. Face is symmetric. SKIN: As above Impression: Right lower extremity cellulitis complicated with varicose veins and venous insufficiency Hyperglycemia suspect prediabetes Elevated blood pressure without hypertension Plan: Right lower extremity cellulitis complicated with varicose veins and venous insufficiency: Patient doing well at this time. White count remains swelling, erythema and pain significantly relieved. We will plan for discharge today with Levaquin for 7 more days. Patient will continue with cleansing of right lower extremity with antibacterial soap and water then application of Bactroban daily. X-ray shows no evidence of fracture. Venous Doppler negative. Blood cultures negative. Patient should follow-up with PCP within 1 week to follow-up this hospitalization. Hyperglycemia without DM or Prediabetes: A1c 5.3. No diabetes or prediabetes. Elevated blood pressure without hypertension: Will monitor blood pressure closely. Consider adding medication if blood pressure remains elevated. Code Status: Full Code DVT prophylaxis: Lovenox Advanced Care Planning-30 minutes: Home at discharge Time Spent Managing Pts Care (In Minutes): 55
[2021-04-06] MEDS ORDERED: POTASSIUM CL SA 10 MEQ TAB PO ONE (06:30)
--- NOTE | 2021-04-06 07:39 | P.DS ---
Admission Date: 04/05/21 Discharge Date: 04/06/21 Primary Care Provider: Dr. Oquendo Disposition: ROUTINE DISCHARGE Discharge Condition: GOOD Reason for Admission: Right lower extremity pain Consultations: none Procedures: COVID: negative Venous Doppler: COMPARISON: None. TECHNIQUE: Real-time sonographic evaluation of the right lower extremity deep venous systems was performed. FINDINGS: Normal compressibility, flow augmentation, phasic flow and spontaneous flow are identified in the right lower extremity common femoral, sup erficial femoral, popliteal and posterior tibial veins. No intraluminal filling defects seen. IMPRESSION: No DVT in the right lower extremity. Chest x-ray: COMPARISON: Portable May 2018 TECHNIQUE: AP portable chest image was obtained 04/04/2021 2:42 pm . FINDINGS: Lungs are clear. Interstitial pattern matches comparison. Heart and vasculature are normal. No measurable pleural effusion and no pneumothorax. No acute bony abnormality seen. No acute aortic findings suspected. IMPRESSION: No acute cardiopulmonary process. No significant change from comparison study. Right LE xray: COMPARISON: No comparisons FINDINGS: No fracture is identified. There is no dislocation or periosteal reaction noted. No acute or suspicious bony finding. Achilles and plantar tendons artery are present calcaneus. No foreign body or other soft tissue abnormality. IMPRESSION: Negative right tibia & fibula examination significant finding. Medical Problem List: Right lower extremity cellulitis complicated with varicose veins and venous insufficiency Hyperglycemia suspect prediabetes Elevated blood pressure without hypertension Brief History of Present Illness: 60-year-old male presented to emergency room with right lower extremit y pain. Patient reports walking into a [employer] picking up some debris on Saturday. He had some areas of excoriation to the right lower extremity. Patient reports a history of varicose veins. Then today he started to notice fever, warmth to the right lower extremity. He is very weak. He came to the ER for further evaluation. In the ER patient was evaluated. Venous Doppler showed no DVT. Chest x-ray unremarkable. White count 7.6, hemoglobin 15. Lactic acid normal. Procalcitonin negative. Troponin negative. Sodium 136, potassium 3.5. BUN of 15, creatinine 1.14 with a GFR 65. Glucose 108. Patient given IV antibiotic therapy in the ER. Patient admitted for further evaluation Hospital Course: Patient presented with right lower extremity cellulitis. This was complicated with patient having varicose veins and venous insufficiency. Patient required hospitalization. Patient received IV antibiotic therapyvancomycin and Levaquin with improvement. Venous Doppler showed no evidence of DVT. X-ray shows no evidence of fracture. His condition is significantly improved. At discharge patient will continue with Levaquin 500 mg daily for 7 more days. Patient should cleanse his right lower extremity with antibacterial soap and water then apply Bactroban ointment to areas of excoriation daily. Recommend follow-up with PCP within 1 week to follow-up hospitalization. Patient may return to work on Saturday. Patient had mild elevation in blood sugar. Hemoglobin A1c 5.3. No evidence of diabetes mellitus or prediabetes. Recommend to recheck hemoglobin A1c every 6 to 12 months to monitor his progress. Patient had mild elevation in blood pressure without hypertension. No need for blood pressure medication at this time. Patient reports that he used to take medication for blood pressure in the past. Recommend to monitor his blood pressure. If blood pressure remains above 140/90 patient may require medication. This can be further addressed by his PCP. Vital Signs/Physical Exam: Temp Pulse Resp BP Pulse Ox 97.3 F 70 19 136/65 96 04/06/21 07:32 04/06/21 07:32 04/06/21 07:32 04/06/21 07:32 04/06/21 07:32 General: Alert, In no apparent distress, Oriented x3, Cooperative HEENT: Atraumatic Neck: Supple Respiratory: Clear to auscultation bilaterally, Normal air movement Cardiovascular: Normal pulses, Regular rate/rhythm Gastrointestinal: Normal bowel sounds, No tenderness, No masses, No rebound, No guarding Musculoskeletal: No erythema, No tenderness Integumentary: Other (No significant erythema to the right lower extremity. Swelling significantly proved and almost resolved. Some areas of excoriation. No exudate or evidence of abscess. Varicose veins to the lower extremities) Neurological: Normal speech, Normal strength at 5/5 x4 extr, Normal tone, Normal affect Laboratory Data at Discharge: WBC 5.50 K/uL (4.3-10.9) D 04/06/21 03:17 Hgb 12.3 g/dL (13.6-17.9) L 04/06/21 03:17 Hct 35.4 % (39.6-49.0) L 04/06/21 03:17 Plt Count 191 K/uL (152-406) 04/06/21 03:17 PT 11.9 SECONDS (9.5-12.5) 04/04/21 14:20 INR 1.03 04/04/21 14:20 Sodium 137 mmol/L (136-145) 04/06/21 03:17 Potassium 3.7 mmol/L (3.5-5.1) 04/06/21 03:17 BUN 10 mg/dL (7-18) 04/06/21 03:17 Creatinine 0.99 mg/dL (0.55-1.3) 04/06/21 03:17 Glucose 87 mg/dL (74-106) 04/06/21 03:17 Magnesium 2.2 mg/dL (1.8-2.4) D 04/06/21 03:17 Total Bilirubin 0.8 mg/dL (0.2-1.0) 04/04/21 14:20 AST 20 U/L (15-37) 04/04/21 14:20 ALT 28 U/L (12-78) 04/04/21 14:20 Alkaline Phosphatase 61 U/L (45-117) 04/04/21 14:20 Home Medications: Levofloxacin [Levaquin] 500 mg PO DAILY #7 tablet 04/06/21 Mupirocin Oint [Bactroban 2% Ointment*] 1 appl TOP DAILY #1 tube 04/06/21 New Medications: Mupirocin Oint [Bactroban 2% Ointment*] 1 appl TOP DAILY #1 tube Levofloxacin [Levaquin] 500 mg PO DAILY #7 tablet Physician Discharge Instructions: Patient presented with right lower extremity cellulitis. This was complicated with patient having varicose veins and venous insufficiency. Patient required hospitalization. Patient received IV antibiotic therapyvancomycin and Levaquin with improvement. Venous Doppler showed no evidence of DVT. X-ray shows no evidence of fracture. His condition is significantly improved. At discharge patient will continue with Levaquin 500 mg daily for 7 more days. Patient should cleanse his right lower extremity with antibacterial soap and water then apply Bactroban ointment to areas of excoriation daily. Recommend follow-up with PCP within 1 week to follow-up hospitalization. Patient may return to work on Saturday. Patient had mild elevation in blood sugar. Hemoglobin A1c 5.3. No evidence of diabetes mellitus or prediabetes. Recommend to recheck hemoglobin A1c every 6 to 12 months to monitor his progress. Patient had mild elevation in blood pressure without hypertension. No need for blood pressure medication at this time. Patient reports that he used to take medication for blood pressure in the past. Recommend to monitor his blood pressure. If blood pressure remains above 140/90 patient may require medication. This can be further addressed by his PCP. Diet: AHA Activity: Ad maggie Followup: Ivan Oquendo, [Primary Care Provider] - Time spent managing pt's care (in minutes): 55
[2021-04-06] MEDS: THIAMINE HCL 100 MG TABLET PO SCH (08:21)
[2021-04-06] MEDS: FOLIC ACID 1 MG TABLET PO SCH (08:21)
[2021-04-06] MEDS: FAMOTIDINE 20 MG TAB PO SCH (08:21)
[2021-04-06] MEDS: MUPIROCIN 2% OINT 22GM TUBE TOP SCH (08:22)
[2021-04-06] MEDS: ENOXAPARIN 40 MG/0.4 ML SQ SCH (08:22)
[2021-04-06 09:47] VITALS: BP 158/80; TEMP 98.3
--- NOTE | 2021-04-07 20:46 | EKG ---
Test Date: 2021-04-04 Test Time: 14:22:59 [employer] Engineer: PORFIRIO MEASUREMENT RESULTS: Intervals: Rate: 93 MA: 142 QRSD: 78 QT: 346 QTc: 430 [place]: P: 8 MA: 142 QRS: 8 T: 32 INTERPRETIVE STATEMENTS: Normal sinus rhythm Normal ECG Compared to ECG 06/02/2018 13:11:18 No significant changes Electronically Signed On 04-07-21 20:36:08 [employer] by Fabio Jauregui
--- OUTSIDE RECORDS SUMMARY | 2021-04-08 18:14 | XMS REPORT | Continuity of Care Document ---
:1960 Author Organization [facility] t Address [address] [place] [address] Care Team Providers Name Role Phone Unavailable Unavailable Unavailable Problems This patient has no known problems. Allergies, Adverse Reactions, Alerts This patient has no known allergies or adverse reactions. Medications Ordered Filled Start Stop Current Ordering Indication Dosage Frequency Signature Comments Components Source Medication Medication Date Date Medication? Clinician (SIG) Name Name Metoprolol Metoprolol Yes Ivan [address] [facility] Succinate Succinate 08 Oquendo [facility] Losartan Losartan Yes Ivan [address] [facility] Procedures This patient has no known procedures. Encounters Start End Encounter Admission Attending Care Care Encounter Source Date/Time Date/Time Type Type Clinicians Facility Department ID 2021-04-06 2021-04-06 ambulatory [facility] [id number] [facility] 2021-04-04 2021-04-04 ambulatory [facility] [id number] [facility] 2021-01-18 2021-01-18 Outpatient [facility] [id number] [facility] 2018-06-17 2018-06-17 Outpatient Brazemiliano Durantt [id number] [facility] 16:[facility] 16[facility]00 [facility] 2018-06-03 2018-06-03 Outpatient Bhargav Durantt [id number] [facility] 16:00[facility]00 16:00:00 [facility] 2018-05-14 2018-05-14 Outpatient Bhargav Durantt [id number] [facility] 11:30:00 11:30:00 [facility] Results This patient has no known results.
== END 2021-04-06 08:41 | disposition home or self-care (01) | DRG 603 ==
LOC: ER 13:31 → OBSVTOIN 16:11 → INTOOBSV 16:11 → ERHOLD 16:11 → 2ND 17:42 → OBSVTOIN 04-05 11:17
PROVIDERS: ADMIT Family Medicine; ATTEND Family Medicine
DX: L03.115 Cellulitis of right lower limb (principal); I83.91 Asymptomatic varicose veins of right lower extremity; R73.9 Hyperglycemia, unspecified; I87.2 Venous insufficiency (chronic) (peripheral); R03.0 Elevated blood-pressure reading, without diagnosis of hypertension; Z20.822 Contact with and (suspected) exposure to COVID-19; Z79.82 Long term (current) use of aspirin; Z79.899 Other long term (current) drug therapy
CPT/HCPCS: 36415; 71045; 80048; 80076; 81003; 81015; 82947; 83036; 83605; 83735; 83880; 84145; 84484; 85025; 85610; 87040; 87086; 87088; 93005; 93971; 96374; 96375; 99285; G0378; J0692; J1650; J2405; J3370; J3475; J7030; J7040; J7050; U0003